=== PATIENT | female | born 1930 | race Caucasian/White ===

== ENCOUNTER 2016-06-12 10:51 | Inpatient (IN) | payer MEDICARE ==
[~2016-06-12] VITALS: Ht 152.4 cm; Wt 51.5 kg
[~2016-06-12 10:51] MED LIST: ALEVE220 MG PO; BENICAR40 MG PO; BETAPACE 80 MG80 MG PO; CALCIUM 500 +1 EAC3 PO; CATAPRES0.1 MG PO; CITRACAL + D E1 EACH PO; EXELON1 PATCH .1 TRANSDERM; FLORANEX / LACT1 TAB PO; KLOR-CON 1010 MEQ PO; MACROBID100 MG PO; MEGACE40 MG PO; MICRO-K10 MEQ PO; NAMENDA5 MG PO; REMERON15 MG PO; VITAMIN D5000 UNIT PO; XANAX0.25 MG PO; ZOFRAN4 MG PO; ZOLOFT20 MG/ML PO; ZOLOFT25 MG PO
--- NOTE | 2016-06-12 11:51 | NUR ---
1110-RECEIVED VIA WHEELCHAIR TO ROOM. FAMILY AT BEDSIDE. VSS, TO CT VIA WHEELCHAIR. 1135-RECEIVED BACK TO ROOM.
[2016-06-12 11:54] VITALS: BP 135/63; BMI 21.3
[2016-06-12 12:19] LABS: BASOPHILS 0.1 % (0.0-2.0); EOSINOPHILS 0.6 % (0-7); HEMATOCRIT 33.3 % (36.0-48.0); HEMOGLOBIN 11.1 g/dL (12-16); IMMATURE GRANULOCYTES 0.3 % (0-5); LYMPHOCYTES 11.7 % (15-50); MCH 32.2 pg (26.0-34.0); MCHC 33.3 g/dL (31.0-37.0); MCV 96.5 fL (80.0-100.0); MEAN PLATELET VOLUME 11.1 fL (7.4-10.4); MONOCYTES 7.1 % (2-11); NEUTROPHILS 80.2 % (40-80); PLATELET COUNT 207 10x3/uL (130-400); RBC 3.45 10x6/uL (4.00-5.40); RDW 14.1 % (11.5-14.5); WBC 14.1 10x3/uL (4.8-10.8)
[2016-06-12 12:36] LABS: ALBUMIN 3.7 g/dL (3.4-5.0); ANION GAP 16.4 mmol/L (8-16); BILIRUBIN - TOTAL 0.32 mg/dL (0.2-1.3); CALCIUM 10.3 mg/dL (8.5-10.1); CREATININE - SERUM 1.5 mg/dL (0.6-1.3); POTASSIUM - SERUM 3.4 mmol/L (3.5-5.1); PROTEIN - SERUM 8.5 g/dL (6.4-8.2)
[2016-06-12] MEDS ORDERED: ZOLOFT100 MG PO (12:36)
[2016-06-12] MEDS ORDERED: BENICAR20 MG PO (12:36)
[2016-06-12] MEDS ORDERED: XANAX0.25 MG PO (12:37)
[2016-06-12] MEDS ORDERED: CARDIZEM60 MG PO (12:38)
[2016-06-12] MEDS ORDERED: VITAMIN D5000 UNIT PO (12:39)
[2016-06-12] MEDS ORDERED: PRESERVISION AR1 CAP PO ×2 (12:41)
[2016-06-12] MEDS ORDERED: HYDROCODON-ACE1 EAC7 PO (12:42)
--- NOTE | 2016-06-12 13:24 | NUR ---
0323-BILATERAL SCDs PLACED ON PATIENT. WILL CONTINUE TO MONITOR.
--- NOTE | 2016-06-12 14:18 | NUR ---
IN AND OUT PERFORMMED USING STERILE TECHNIQUE. 50 CC CLOUDY URINE WITH ODOR NOTED. SENT TO LAB ORDERED.
[2016-06-12 14:25] LABS: APPEARANCE TURBID (CLEAR); BILIRUBIN NEGATIVE (NEGATIVE); COLOR YELLOW (YELLOW); GLUCOSE NEGATIVE (NEGATIVE); KETONE NEGATIVE (NEGATIVE); LEUKOCYTE ESTERASE 2+ (NEGATIVE); NITRITE POSITIVE (NEGATIVE); PROTEIN 2+ mg/dL (NEGATIVE); UROBILINOGEN NORMAL (NORMAL)
[2016-06-12 14:27] LABS: BACTERIA MANY /hpf (NONE SEEN); EPITHELIAL CELLS 0-5 /hpf (0-5); MUCUS <1+ /lpf (NONE SEEN); WHITE CELLS - URINE >50 /hpf (0-5)
[2016-06-12 14:28] LABS: TRIPLE PHOSPHATE CRYSTALS 0-5 /hpf (NONE SEEN)
[2016-06-12 16:07] VITALS: BP 137/61
--- NOTE | 2016-06-12 17:01 | NUR ---
7981-CALLED DR MARQUEZ OFFICE ([employer]) FOR DAUGHTER TO REQUEST SOME ATIVAN FOR BEDTIME. TALKED TO LEXI AND SHE SAID SHE WOULD ASK DR NEVAREZ AND CALL ME BACK.
--- NOTE | 2016-06-12 17:19 | NUR ---
RECEIVED CALL BACK FROM LEXI AT DR NEVAREZ'S OFFICE. NEW ORDERS RECEIVED.
[2016-06-12 20:00] VITALS: BP 119/60
--- NOTE | 2016-06-12 23:05 | NUR ---
PT SWALLOWED NIGHTLY MEDICATIONS IN PUDDING WITH EDITH MIST TO FOLLOW. DAUGHTER ASSISTED R/T PT BEING VERY CONFUSED AND AGITATED. SWATTING TOWARDS ME AND TOLD ME "NO YOU WILL NOT GET ON THE WAGON" PT IS READY TO GO BACK TO SLEEP. INITIATED IVPB LEVAQUIN VIA L.FA PIV. NO FURTHER NEEDS NOTED AT THIS TIME. CL IN REACH, BED IN LOWEST, SIDE RAILS X2. WILL CTM.
[2016-06-13] VITALS: BP 95/40
--- NOTE | 2016-06-13 02:07 | NUR ---
UPON ROUNDING ON PTS FOUL ODOR NOTED. CHECKED PT AND SHE WAS SOILED OF INCONTINENCE URINE EPISODE. CLEANSED PT WITH SURVEY RODMAN DEREJE AND PROVIDED FRESH DRY LINENS. NEW BRIEF PLACED WELL. PT IS STILL VERY CONFUSED BUT PLEASANT AND DID NOT FIGHT WITH OUR CARE. DAUGHTER AT BEDSIDE NO FURTHER NEEDS NOTED AT THIS TIME. WILL CPOC.
[2016-06-13 04:00] VITALS: BP 146/63
[2016-06-13 05:44] LABS: BASOPHILS 0.1 % (0.0-2.0); EOSINOPHILS 2.2 % (0-7); IMMATURE GRANULOCYTES 0.3 % (0-5); LYMPHOCYTES 22.2 % (15-50); MCH 31.9 pg (26.0-34.0); MCHC 33.8 g/dL (31.0-37.0); MEAN PLATELET VOLUME 11.4 fL (7.4-10.4); MONOCYTES 11.1 % (2-11); NEUTROPHILS 64.1 % (40-80); RDW 13.8 % (11.5-14.5)
[2016-06-13 05:46] LABS: HEMATOCRIT 23.7 % (36.0-48.0); MCV 94.4 fL (80.0-100.0); PLATELET COUNT 146 10x3/uL (130-400); RBC 2.51 10x6/uL (4.00-5.40); WBC 8.6 10x3/uL (4.8-10.8)
[2016-06-13 05:48] LABS: ANION GAP 14.3 mmol/L (8-16); CALCIUM 8.4 mg/dL (8.5-10.1); CREATININE - SERUM 1.3 mg/dL (0.6-1.3); POTASSIUM - SERUM 3.3 mmol/L (3.5-5.1)
--- NOTE | 2016-06-13 05:58 | NUR ---
POTASSIUM REPLACEMENT GIVEN PER ELECTROLYTE PROTOCOL FOR K LEVEL OF 3.3. RECHECK LAB ORDERED FOR 4H POST DOSE. PT RESTING IN BED WITH DAUGHTER AT BEDSIDE. DAUGHTER HAVING PT DRINK MUCH POSSIBLE LONG SHE WILL COOPERATE.
--- NOTE | 2016-06-13 07:27 | HP ---
PATIENT: RADHA ALVES MEDICAL RECORD: [id number] ACCOUNT: [id number] LOCATION:[facility] [place].2105 : [birth year] ADMISSION DATE: 06/12/16 HISTORY AND PHYSICAL EXAMINATION REASON FOR ADMISSION: Confusion and dehydration. HISTORY OF PRESENT ILLNESS: The patient is an 85-year-old female with history of Alzheimer dementia, nonischemic cardiomyopathy and SVT. She had fallen on May 17. She hit her head, but did not lose consciousness. She was evaluated at [facility] with a CT scan of the C-spine that reportedly showed no acute injury. She returned back to assisted living. Five days ago, she developed some diarrhea and had been drowsy and refusing medications for 3 days before her daughter brought her into our office. There have been no documented fevers or seizure activity. In the office, the patient was sitting slumped in her chair, minimally responsive, she was normotensive and mildly tachycardic. She was therefore directly admitted to the hospital for probable dehydration and altered mental status. PAST MEDICAL HISTORY: Profound Alzheimer dementia, essential hypertension, nonischemic cardiomyopathy, supraventricular tachycardia, essential hypertension, sick sinus syndrome with pacemaker, history of uterine prolapse, left bundle branch block, hyperlipidemia, history of anemia, osteoarthritis, atrial fibrillation, paroxysmal, and hiatal hernia. PAST SURGICAL HISTORY: Pacemaker placement, exploratory surgery of the abdomen and history of knee replacement. FAMILY HISTORY: Father had heart disease. Mother had heart disease and stroke. History of cancer and hypertension in the family. One brother with migraines. SOCIAL HISTORY: Nonsmoker, nondrinker lifelong. She lives in assisted living. Her daughter is very attentive to her care. ALLERGIES: SAMUEL INHIBITORS, AMIODARONE, ASPIRIN, KEFLEX, LIPITOR, PENICILLIN, SULFA, TALWIN AND ZITHROMAX. HOME MEDICATIONS: Megace 40 mg p.o. b.i.d., Cardizem 60 mg p.o. t.i.d., Benicar 20 mg p.o. daily, sotalol 80 mg b.i.d., Catapres 0.1 p.o. q.6 hours p.r.n. systolic blood pressure greater than 180, Xanax 0.25 mg p.o. b.i.d. p.r.n. anxiety, [place] 5/325 one q.6 hours p.r.n. low back pain, Namenda 10 mg p.o. b.i.d., Remeron 15 mg p.o. at bedtime, Aleve 220 mg p.o. q.4 hours p.r.n. pain, Zoloft 100 mg p.o. daily, probiotic 1 p.o. b.i.d., vitamin D 5000 unit capsule p.o. weekly, multivitamin and PreserVision 2 caps p.o. daily. REVIEW OF SYSTEMS: GENERAL: The patient has been lethargic the last 3 days, refusing food, liquids, or medications. No fever has been noted. HEENT: No recent visual change. RESPIRATORY: No shortness of breath, cough. CARDIAC: No recent chest pain or edema. GASTROINTESTINAL: No nausea or vomiting. She had some diarrhea last week that has resolved. Denied hematemesis or melena. MUSCULOSKELETAL: Has chronic lumbago, no recent sciatica. INTEGUMENTARY: No rash or itching. HISTORY AND PHYSICAL [id number] RADHA ALVES PSYCHIATRIC: She has chronic anxiety, but not depressed mood. History of severe dementia, was hospitalized at [facility], seen in [facility] last year for advanced dementia with psychotic tendencies. PHYSICAL EXAMINATION: VITAL SIGNS: In the office, her temperature was 97.7, heart rate of 100 and regular, respirations 16, blood pressure 120/62, sat 94% on room air. GENERAL: The patient is sitting in a chair, slumped down with minimal verbal ____, she did respond to touch. HEENT: Normocephalic. Pupils are reactive, but she did withdraw to open her eyes to examine her. Oropharynx: Dry mucous membranes. NECK: Supple. CHEST: Clear. HEART: Regular rate. ABDOMEN: Soft, nontender. EXTREMITIES: No CC&E. NEUROLOGICAL: The patient is disoriented to person, place and time. She cannot walk unassisted. INTEGUMENT: Few scattered ecchymoses were noted under her left eye from a recent fall. LABORATORY DATA: White count is 14,000, H&H is 11.1 and 33.3, platelet count is 207,000, 80% neutrophils, 11% lymphocytes. Chemistry: Potassium is low at 3.4, BUN and creatinine are 66 and 1.5, glucose 158 and calcium 10.3. Urinalysis is pending. IMAGING: Chest x-rays showed no acute findings. CT of the head showed no acute abnormality, mild burden of white matter changes representing chronic small-vessel ischemic changes and [id number] cerebellar volume loss. ASSESSMENT: 1. Intravascular volume depletion. 2. Diarrhea, resolved. 3. Hypokalemia. 4. Altered mental status secondary to dehydration. 5. History of hypertension, nonischemic cardiomyopathy, supraventricular tachycardia, advanced Alzheimer dementia, osteoarthritis and hyperlipidemia. PLAN: We will hydrate, replace potassium. Neuro checks frequently once more alert. If passes swallow test, we will resume medications as she tolerates them. I discussed with her daughter her current course. TRANSINT:[id number] Voice Confirmation ID: [id number] DOCUMENT ID: [id number] TY MARQUEZ MD at 0727 CC: [id number] DICTATION DATE: 06/12/16 1342 HUMID SYSTEM OPERATOR: 06/12/16 1445 ADM IN [place] [address] [place] [address]
[2016-06-13 07:41] LABS: % SATURATION 37 % (15-55); IRON 64 ug/dl (35-150); TOTAL IRON BIND CAPACITY 171 ug/dl (260-445); UNSAT IRON BIND CAPACITY 107 ug/dl (150-375)
[2016-06-13 08:56] VITALS: BP 109/48
[2016-06-13 10:04] VITALS: Ht 152.4 cm; Wt 51.5 kg
--- NOTE | 2016-06-13 11:28 | NUR ---
UNABLE TO PUT ROY IN DUE TO PT NO OPENING LEGS WITH DAUGHTER HELP IN THE ROOM.
[2016-06-13 12:00] VITALS: BP 114/51
[2016-06-13 14:26] LABS: BASOPHILS 0.1 % (0.0-2.0); EOSINOPHILS 1.7 % (0-7); HEMATOCRIT 24.5 % (36.0-48.0); HEMOGLOBIN 8.1 g/dL (12-16); IMMATURE GRANULOCYTES 0.2 % (0-5); LYMPHOCYTES 21.7 % (15-50); MCH 31.5 pg (26.0-34.0); MCHC 33.1 g/dL (31.0-37.0); MCV 95.3 fL (80.0-100.0); MONOCYTES 11.5 % (2-11); NEUTROPHILS 64.8 % (40-80); PLATELET COUNT 152 10x3/uL (130-400); RBC 2.57 10x6/uL (4.00-5.40); RDW 13.7 % (11.5-14.5)
--- NOTE | 2016-06-13 15:41 | NUR ---
PT REFUSES CARDIZEM WITHOUT DAUGHTER IN THE ROOM.
[2016-06-13 20:00] VITALS: BP 139/95
--- NOTE | 2016-06-13 20:34 | NUR ---
ADMINISTERED NIGHTLY MEDICATIONS CRUSHED IN CHOCOLATE ICE CREAM AND MIXED WITH MILK FOR A MILKSHAKE. PT IS VERY HESITANT TO DRINK AND EAT ANYTHING WHEN WE ARE NEEDING HER TO. DAUGHTER AT BEDSIDE AND CONVINCES HER TO TAKE IT BUT HAS A VERY HARD TIME WELL. INITIATED PT IVPB ANBX INFUSING OVER 90 MINS VIA L.FA PIV DRSG CDI AND SWAB CAPS. PT WILL HAVE A BLOOD TRANSFUSION ONCE BLOOD BANK GETS IT AVAILABLE. CONSENTS SIGNED AND IN CHART. PT RESTING PLEASANTLY CONFUSED DENIES ANY FURTHER NEEDS AT THIS TIME. CL IN REACH. WILL CPOC.
--- NOTE | 2016-06-13 22:45 | NUR ---
INITIATED BLOOD TRANSFUSION ORDERED. INFUSING VIA L.FA PIV. PRE VITALS 98.2 T, 85 HR, 18 RR NONLABORED ON RA, 99% O2 SAT AND 131/62 BP VIA R.ARM. WILL REMAIN IN ROOM FOR FIRST 15 MINS TO WATCH FOR ANY REACTION THEN CONTINUE TO MONITER VITALS PER PROTOCOL. DAUGHTER AT BEDSIDE AND DENIES ANY CURRENT NEEDS. WILL CTM.
--- NOTE | 2016-06-13 23:19 | NUR ---
L.FA PIV INFILTRATED. STOPPED BLOOD AND D/C WITH CATHETER TIP FULLY INTACT. NEW [address] TO ANTERIOR L.FA X1 ATTEMPT AND BLOOD BACK IN PROCESS OF TRANSFUSION. VSS STILL. DAUGHTER AT BEDSIDE. PT RESTING QUIETLY AND WAS VERY COOPERATIVE THROUGHOUT NEW IV PLACEMENT. WILL CPOC.
--- NOTE | 2016-06-14 00:50 | NUR ---
BLOOD TRANSFUSING WITHOUT ANY REACTIONS OR PROBLEMS NOTED. VSS. PT RESTING QUIETLY WITH EYES CLOSED, RR NONLABORED ON RA. DAUGHTER SLEEPING AT BEDSIDE. WILL CTM.
--- NOTE | 2016-06-14 02:30 | NUR ---
BLOOD TRANSFUSION COMPLETED. VSS THROUGHOUT ENTIRE TRANSFUSION. NO REACTION NOTED. FLUSHED IV AND RESTARTED ORDERED FLUIDS OF D51/2 NS @125ML/HR. PT DENIES ANY CURRENT PAIN OR NEEDS. DAUGHTER STILL AT BEDSIDE RESTING. CL IN REACH. WILL CPOC.
[2016-06-14 04:00] VITALS: BP 123/53
[2016-06-14 06:28] LABS: BASOPHILS 0.1 % (0.0-2.0); EOSINOPHILS 2.7 % (0-7); IMMATURE GRANULOCYTES 0.4 % (0-5); LYMPHOCYTES 23.5 % (15-50); MCH 30.8 pg (26.0-34.0); MCHC 33.7 g/dL (31.0-37.0); MEAN PLATELET VOLUME 11.1 fL (7.4-10.4); MONOCYTES 13.3 % (2-11); PLATELET COUNT 144 10x3/uL (130-400); RDW 15.5 % (11.5-14.5); WBC 7.9 10x3/uL (4.8-10.8)
[2016-06-14 06:29] LABS: HEMATOCRIT 30.9 % (36.0-48.0); HEMOGLOBIN 10.4 g/dL (12-16); MCV 91.4 fL (80.0-100.0); RBC 3.38 10x6/uL (4.00-5.40)
[2016-06-14 06:58] LABS: ANION GAP 10.1 mmol/L (8-16); CALCIUM 8.9 mg/dL (8.5-10.1); CARBON DIOXIDE 24.6 mmol/L (21.0-32.0); CREATININE - SERUM 1.1 mg/dL (0.6-1.3); POTASSIUM - SERUM 3.7 mmol/L (3.5-5.1)
--- NOTE | 2016-06-14 07:00 | NUR ---
RECEIVED REPORT. ASSUMED CARE OF PATIENT. CALL LIGHT WITHIN REACH. CONFUSED. PATIENTS DAUGHTER AT BEDSIDE. NO DISTRESS. RESP EVEN AND UNLABORED. DENIES NEEDS AT THIS TIME.
[2016-06-14 09:04] VITALS: BP 145/64
[2016-06-14 09:12] LABS: FOLATE (FOLIC ACID) - SERUM 10.9 ng/mL (>3.0)
--- NOTE | 2016-06-14 09:59 | NUR ---
PATIENT COOPERATIVE WITH MEDICATIONS. TOOK ALL MEDICATIONS IN SOFT, SLIGHTLY MELTED VANILLA ICE CREAM. IV FLUIDS INFUSING ORDERED. NO DISTRESS. CALL LIGHT WITHIN REACH.
[2016-06-14 12:12] VITALS: BP 121/76
--- NOTE | 2016-06-14 15:11 | NUR ---
CALLED THE [facility] AND SPOKE TO PATRICIA IN REGARDS TO HOW MUCH PROMPTING PATIENT NEEDS IN REGARDS TO EATING AND TAKING HER MEDICATIONS. ALEXSANDRA STATES THAT NORMALLY PATIENT WILL FEED HERSELF WITH MINIMAL COAXING AND THAT SHE TAKES HER MEDICATIONS CRUSHED IN APPLESAUCE. THIS SCHOOL TREASURER HAS BEEN ABLE TO GET PATIENT TO TAKE HER MEDICATIONS CRUSHED IN APPLESAUCE BUT HAS NOT BEEN ABLE TO GET HER TO EAT OR DRINK AND THAT IS WHY THIS SCHOOL TREASURER WAS REACHING OUT TO THE FACILITY THAT IS FAMILIAR WITH HER. THANKED ALEXSANDRA FOR PROVIDING THIS SCHOOL TREASURER WITH INFORMATION HE WAS ABLE TO PROVIDE.
[2016-06-14 16:25] VITALS: BP 166/44
--- NOTE | 2016-06-14 18:30 | NUR ---
INCONTINENT CARE PROVIDED AT THIS TIME. NO DISTRESS.
--- NOTE | 2016-06-14 19:30 | NUR ---
ASSESSMENT COMPLETE, ON ROOM AIR, D51/2NS INFUSING W/O DIFF VIA PUMP TO RT FA IV WITH NO R/S NOTED AT SITE. ORIENTED TO SELF ONLY, UNABLE TO ORIENT. INCONT OF B & B WITH BRANDEE CARE AND LINEN CHANGE DONE PRN. HOB UP SR UP X2, C/L IN REACH, CONTINUE TO MONITOR.
[2016-06-15 00:37] VITALS: BP 141/66
[2016-06-15 05:09] LABS: BASOPHILS 0.1 % (0.0-2.0); EOSINOPHILS 3.6 % (0-7); HEMATOCRIT 32.8 % (36.0-48.0); IMMATURE GRANULOCYTES 0.7 % (0-5); LYMPHOCYTES 25.5 % (15-50); MCH 30.6 pg (26.0-34.0); MCHC 33.5 g/dL (31.0-37.0); MCV 91.4 fL (80.0-100.0); MEAN PLATELET VOLUME 11.2 fL (7.4-10.4); MONOCYTES 11.4 % (2-11); NEUTROPHILS 58.7 % (40-80); PLATELET COUNT 152 10x3/uL (130-400); RBC 3.59 10x6/uL (4.00-5.40); RDW 15.4 % (11.5-14.5); WBC 6.9 10x3/uL (4.8-10.8)
[2016-06-15 05:48] LABS: ANION GAP 12.4 mmol/L (8-16); CALCIUM 8.5 mg/dL (8.5-10.1); CARBON DIOXIDE 24.2 mmol/L (21.0-32.0); CREATININE - SERUM 0.9 mg/dL (0.6-1.3); POTASSIUM - SERUM 3.6 mmol/L (3.5-5.1)
--- NOTE | 2016-06-15 07:00 | NUR ---
RECEIVED REPORT. ASSUMED CARE OF PATIENT. CALL LIGHT WITHIN REACH. ORIENTED TO SELF. IV FLUIDS INFUSING ORDERED. NO DISTRESS. RESP EVEN AND UNLABORED.
[2016-06-15 09:00] VITALS: BP 147/56
--- NOTE | 2016-06-15 09:20 | NUR ---
PATIENT LEFT UNIT VIA WHEELCHAIR FOR RIB XRAY DOWNSTAIRS IN RADIOLOGY. NO DISTRESS UPON LEAVING UNIT. PATEINTS DAUGHTER AT BEDSIDE.
--- NOTE | 2016-06-15 09:45 | NUR ---
PATIENT RETURNED TO ROOM AND ASSISTED TO BED. CALL LIGHT WITHIN REACH. INCONTINENT CARE PROVIDED. NO DISTRESS.
--- NOTE | 2016-06-15 15:15 | NUR ---
VANILL ICE CREAM FED TO PATIENT AT THIS TIME. INCONTINENT CARE / LINENS CHANGED AT THIS TIME ALSO. CALL LIGHT WITHIN REACH. PATIENT TURNED TO LEFT LATERAL SIDE. NO DISTRESS.
[2016-06-15 16:00] VITALS: BP 135/57
--- NOTE | 2016-06-15 18:09 | NUR ---
SITTING IN BED WITH HOB. NO DISTRESS. RESP EVEN AND UNLABORED.
[2016-06-16] VITALS: BP 166/75
--- NOTE | 2016-06-16 02:57 | NUR ---
LYING IN BED WITH EYES CLOSED, RESP;UNLAB WITH NO S/S OF ACUTE DISTRESS NOTED. UNABLE TO ORIENT TO TIME AND PLACE. CHECKED FREQ FOR NEEDS. C/L IN REACH. BOX ALARM ON AND WORKING FOR SAFETY. CONTINUE TO MONITOR.
[2016-06-16 08:00] VITALS: BP 172/73
--- NOTE | 2016-06-16 08:03 | NUR ---
0715-AM ROUNDING DONE WTIH PAITNET APPEARING TO BE ASLEEP, RESP ARE EVEN AND NON LABORED. BOX ALARM IS IN USE. ON HEART MONITOR SHOWING SR, HR 72. LEFT FOREARM SEEN WITH SALINE LOCK. ON EP, LAB VALUES ARE GOOD. BILATERAL SCD'S ARE IN USE. DAUGHTER NOT AT BEDSIDE AT PRESENT TIME. WILL CONTINUE TO MONITOR.
[2016-06-16 12:00] VITALS: BP 152/74
--- NOTE | 2016-06-16 15:48 | NUR ---
1517-CARDIZEM CRUSED AND MIXED WITH CHOCOLATE PUDDING. DAUGHTER AT BEDSIDE. BOX ALARM IN USE.
[2016-06-16 16:00] VITALS: BP 141/63
--- NOTE | 2016-06-16 20:09 | NUR ---
PT AWAKE, ALERT, CONFUSED, BEING PLEASANT AT THIS TIME. DENIES ANY ACUTE NEEDS. CONTINUE TO MONITOR CLOSELY. BED LOW, CALL LIGHT IN REACH, SIDE RAILS X 2, HOB 20 DEGREES, BOX ALARM ON AND ATTACHED TO PT.
[2016-06-16 21:40] VITALS: BP 123/100
[2016-06-17 02:00] VITALS: BP 177/99
--- NOTE | 2016-06-17 03:01 | NUR ---
PT AWAKE, ALERT, CONFUSED, TALKING TO HERSELF AT THIS TIME. BOX ALARM ON AND ATTACHED TO PT. PT REFUSED HER 21:00 MEDS EVEN WHEN CRUSHED AND GIVEN WITH CHOCOLATE PUDDING. PT DEMONSTRATES GREAT CONFUSION AND INABILITY TO FOLLOW SIMPLE DIRECTIONS. CONTINUE TO MONITOR CLOSELY. BED LOW, CALL LIGHT IN REACH, SIDE RAILS X 3, HOB 25 DEGREES.
--- NOTE | 2016-06-17 07:15 | NUR ---
RESTING QUIETLY EYES CLOSED RESP UNLABORED NAD NOTED
[2016-06-17 08:19] VITALS: BP 170/65
[2016-06-17 12:05] VITALS: BP 132/62
--- NOTE | 2016-06-17 14:57 | NUR ---
Nutrition follow-up: Visited with pts daughter; requested sausage gravy; RDN provided. Diet: Regular as tolerated PO intake ~50-75% of meals Labs reviewed Wt: 113# - up 3# from admit No BM charted RDN following.
[2016-06-17 16:04] VITALS: BP 78/50
--- NOTE | 2016-06-17 18:16 | NUR ---
BEDDING AND GOWN CHANGED
--- NOTE | 2016-06-17 20:10 | NUR ---
PT RESTING IN BED. IV TO LEFT FA IS PATENT. PT IS CONFUSED, ONLY ORIENTED TO SELF. BED ALARM IN PLACE. CL IN REACH.
--- NOTE | 2016-06-17 22:50 | NUR ---
PT HS MEDS ADMINISTERED. PT DENIES NEEDS. WCTM. BED LOW. CL IN REACH.
[2016-06-18] VITALS: BP 141/63
--- NOTE | 2016-06-18 00:15 | NUR ---
PT RESTING, EYES CLOSED. BED LOW. CL IN REACH.
[2016-06-18 04:00] VITALS: BP 152/49
--- NOTE | 2016-06-18 04:45 | NUR ---
PT HAD INCONT EPISODE. PT HAD COMPLETE BED CHANGE AND GOWN CHANGE. BUTT PASTE APPLIED TO REDDENED AREA ON BUTTOCK.
--- NOTE | 2016-06-18 07:22 | NUR ---
PT RESTING COMFORTABLY. NO SS OF DISTRESS AT THIS TIME. WILL CONTINUE TO MONITOR.
--- NOTE | 2016-06-18 08:09 | NUR ---
PATIENT AWAKE. VERY CONFUSED/DISORIENTATED. DAUGHTER IN ROOM WITH PATIENT. DAUGHTER FEEDING PATIENT. LEFT FOREARM SL. NO OXYGEN. CALL LIGHT WITHIN PATIENTS REACH
[2016-06-18 08:21] VITALS: BP 162/67
--- NOTE | 2016-06-18 10:30 | NUR ---
Rehab Note- Rehab Prescreen order received. Spoke with SHEREE Gilliam. The patient is noted on PT eval to be demented and unable to participate with therapy due to cognition and resides on a dementia unit. Will continue to follow at this time to see if the patient is able to participate with therapy. Thank you for this referral! Malinda Mckinnon RN Clinical Liaison, [facility] Rehab/Jose
--- NOTE | 2016-06-18 12:00 | NUR ---
PATIENT GOTTEN UP IN CHAIR AT BEDSIDE BY PHYSICAL THERAPIST.
--- NOTE | 2016-06-18 12:26 | NUR ---
PATIENT TAKING MEDICATIONS CRUSHED IN APPLESAUCE
[2016-06-18 12:36] VITALS: BP 130/53
--- NOTE | 2016-06-18 15:12 | NUR ---
PATIENT RESTING. DAUGHTER REMAINS IN ROOM. PATIENT TAKES MEDICATIONS CRUSHED IN PUDDING.
[2016-06-18 15:35] VITALS: BP 156/72
--- NOTE | 2016-06-18 16:49 | NUR ---
Patient Name: RADHA ALVES Admission Status: Elective Accout number: [id number] Admission Date: 06-12-2016 : 1930 Admission Diagnosis:DISORIENTATION, UNSPECIFIED Attending: ASHLEY Current LOS: 6 Anticipated DC Date: 06-19-2016 Planned Disposition: Inpatient Rehab Primary Insurance: [facility] PLANNED EXTERNAL PROVIDER: [facility] INPATIENT REHAB Discharge Planning Comments: * Is the patient Alert and Oriented? No 0 * How many steps to enter\exit or inside your home? NONE 0 * PCP DR. MARQUEZ 0 * Pharmacy [facility] 0 * Preadmission Environment Assisted Living 0 * Facility Name [facility] 0 * ADLs Partial Dependent 0 * Partial ADLs (Assistance needed) Bathing Medication Management 0 * Equipment None 0 * Other Equipment [facility] -MEDICAL EQUIPMENT PROVIDER PREFERENCE 0 * List name and contact numbers for known caregivers / representatives who currently or will assist patient after discharge: CLEM GORE, DAUGHTER, 0 * Community resources currently utilized None 0 * Please name any agencies selected above. NONE 0 * Additional services required to return to the preadmission environment? Yes * Can the patient safely return to the preadmission environment? Yes 0 * Has this patient been hospitalized within the prior 30 days at any hospital? No 0 CM MET WITH PT AND DAUGHTER IN ROOM TO DISCUSS DISCHARGE PLANNING AND NEEDS. PT ORIENTED TO SELF ONLY AND IS VERY HARD OF HEARING. PT'S DAUGHTER REPORTS PT LIVING AT THE [facility] IN [facility]ARE UNIT, HAVING ASSISTANCE OF STAFF WITH MEDICATIONS AND BATHING. PT HAS NO MEDICAL EQUIPMENT, PROVIDER PREFERENCE IS [facility]. CM DISCUSSED AVAILABILITY OF HOME HEALTH, REHAB SERVICES AND MEDICAL EQUIPMENT. PT'S DAUGHTER WOULD LIKE PT TO RETURN TO [facility] WHEN ABLE AND WOULD LIKE PT CONSIDERED FOR INPATIENT REHAB AT [place]. PT WAS WALKING INDEPENDENTLY AT [facility] WITHOUT ASSISTIVE DEVICE PRIOR TO GETTING SICK. PT'S DAUGHTER WILL TRANSPORT PT FOR DISCHARGE HOME. IMPORTANT MESSAGE FROM MEDICARE PROVIDED AND EXPLAINED. CM DISCUSSED POSSIBLITY OF LONG-TERM FACILITY FOR REHAB. PT'S DAUGHTER REPORTS THE [facility] HAS A THERAPIST ON SITE AT THE FACILITY AND SHE DOES NOT KNOW WHERE SHE WOULD LIKE TO SEND PT FOR LONG-TERM FACILITY REHAB IF NEEDED. CM PROVIDED LISTING FOR LOCAL NURSING FACILITIES IF REQUIRED. CM DISCUSSED THAT IF PT NEEDS LONG-TERM FACILITY PLACEMENT, A DARIELA WILL NEED TO BE COMPLETED, PT'S DAUGHTER REPORTS UNDERSTANDING AND WILL ASSIST IF NEEDED. CM CALLED THE [facility], , SPOKE TO JOHNATHAN WHO REPORTED THAT FOR RETURN TO MEMORY [facility]ARE, A FACE TO FACE EVALUATION WILL NEED TO BE COMPLETED; TO REQUEST EVALUATION, PLEASE CALL ZENY OR RICHARD AT [phone] TOMORROW; IF ACCEPTED, FAX DISCHARGE INFORMATION TO THE [facility] AT [phone]. CM WAITING INPATIENT REHAB PRESCREEN AND IF APPROPRIATE FOR INPATIENT, INSURANCE AUTHORIZATION. CM TO CALL [facility] TO REQUEST FACE TO FACE EVALUATION OF PT FOR RETURN TO [facility]ARE. Supervising Law Enforcement Analyst: Buck Vann
--- NOTE | 2016-06-18 17:35 | NUR ---
PATIENT HELPED WITH SUPPER TRAY. FOOD ON TRAY CUT UP FOR PATIENT
[2016-06-18 20:00] VITALS: BP 157/68
--- NOTE | 2016-06-18 20:00 | NUR ---
LYING IN BED RESTING WITH EYES CLOSED. AROUSES EASILY. VERY CONFUSED AND DISORIENTED. NO SIGNS OF DISTRESS NOTED. SEE ASSESSMENT FLOW SHEET FOR FUTHER DETAILS. WILL CONTINUE TO MONITOR.
[2016-06-19] VITALS: BP 171/45
[2016-06-19 05:19] LABS: BASOPHILS 0.2 % (0.0-2.0); EOSINOPHILS 5.8 % (0-7); HEMATOCRIT 32.6 % (36.0-48.0); HEMOGLOBIN 11.1 g/dL (12-16); IMMATURE GRANULOCYTES 0.4 % (0-5); LYMPHOCYTES 13.9 % (15-50); MCH 31.4 pg (26.0-34.0); MCV 92.4 fL (80.0-100.0); MEAN PLATELET VOLUME 10.8 fL (7.4-10.4); MONOCYTES 10.2 % (2-11); NEUTROPHILS 69.5 % (40-80); PLATELET COUNT 157 10x3/uL (130-400); RBC 3.53 10x6/uL (4.00-5.40); RDW 14.9 % (11.5-14.5); WBC 10.7 10x3/uL (4.8-10.8)
[2016-06-19 05:28] LABS: ANION GAP 10.3 mmol/L (8-16); CALCIUM 8.9 mg/dL (8.5-10.1); CARBON DIOXIDE 30.5 mmol/L (21.0-32.0); CREATININE - SERUM 0.9 mg/dL (0.6-1.3); POTASSIUM - SERUM 3.8 mmol/L (3.5-5.1)
[2016-06-19 06:28] VITALS: BP 130/74
--- NOTE | 2016-06-19 07:00 | NUR ---
PT WAS RECEIVED AT THE BEGINNING OF THIS SHIFT IN BED AWAKE AND ORIENTED TO SELF. SHE HAS DEMENTIA AND IS CONFUSED AND UNABLE TO COMMUNICATE OR UNDERSTAND COMMUNICATION. VITAL SIGNS WNL. PT WILL BE ASSISTED WITH ADL'S AND BE GIVEN SUPPORT. STABLE CONDITION OBSERVED. LEFT FOREARM IV WITH NS GOING AT TKO. PT IS INCONTINENT OF BOWEL AND BLADDER. MEDS ARE TO BE CRUSHED AND PUT IN CHOCOLATE PUDDING. DAUGHTER IS AT BEDSIDE.
[2016-06-19 08:00] VITALS: BP 167/62
[2016-06-19] MEDS ORDERED: MACROBID100 MG PO (08:22)
[2016-06-19] MEDS ORDERED: MIRALAX17 GM PO (08:29)
[2016-06-19] MEDS ORDERED: MILK OF MAGNESI30 ML PO (08:29)
--- NOTE | 2016-06-19 08:46 | NUR ---
Patient Name: RADHA ALVES Encounter No: [id number] : 1930 Primary Insurance: [employer] Anticipated DC Date: 06-19-2016 Planned Disposition: Inpatient Rehab External Planned Provider: [facility] INPATIENT REHAB DCP follow-up note: CM CALLED THE [facility], , SPOKE TO RICHARD WHO REPORTED THAT FOR RETURN TO [facility]ORY [facility]ARE, A FACE TO FACE EVALUATION WILL NEED TO BE COMPLETED; RICHARD WILL BE HERE TO EVALUATE PT BEFORE 11AM TODAY; IF ACCEPTED, FAX DISCHARGE INFORMATION TO THE [facility] AT [phone]. CM WAITING INPATIENT REHAB PRESCREEN AND IF APPROPRIATE FOR INPATIENT, INSURANCE AUTHORIZATION. CM ALSO WAITING FACE TO FACE EVALUATION TODAY OF PT FOR RETURN TO [facility]. Proposal Development Manager: Buck Vann
[2016-06-19 11:46] VITALS: BP 165/81
--- NOTE | 2016-06-19 14:45 | NUR ---
Patient Name: RADHA ALVES Encounter No: [id number] : 1930 Primary Insurance: [employer] Anticipated DC Date: 06-19-2016 Planned Disposition: Assisted Living WITH HOME HEALTH External Planned Provider: [facility] WITH [facility] DCP follow-up note: PT WAS DECLINED BY INPATIENT REHAB. CM SPOKE TO PT'S DAUGHTER WHO WILL TAKE PT BACK TO [facility] WITH HOME HEALTH THERAPY. CM CALLED THE [facility], , SPOKE TO WADE WHO REPORTED EVAL WAS DONE AND THEY WILL ACCEPT PT TODAY BACK TO [facility]ARE,CM SPOKE TO PT AND DAUGHTER IN ROOM, BOTH IN AGREEMENT WITH DISCHARGE TO THE [facility] TODAY, DAUGHTER TO DRIVE. HOME HEALTH DISCUSSED, PT'S DAUGHTER REQUESTED [facility], CHOICE SIGNED. CM FAXED DISCHARGE INFORMATION TO THE [facility] AT [phone]. CM CALLED [facility], , SPOKE TO LUPE AND PROVIDED REFERRAL INFORMATION FOR FOLLOW UP TOMORROW. CM FAXED REFERRAL TO [facility] AT [phone]. NURSE REPORT TO BE CALLED TO THE [facility] AT [phone]. HOT REPAIRMAN NOTIFIED. Buck Vann, CASE MANAGEMENT
--- NOTE | 2016-06-19 15:57 | NUR ---
PT IS BEING DISCHARGED AT THIS TIME. REPORT WAS PHONED INTO THE RECEIVING NURSE AT THE [facility]. PT'S DAUGHTER WAS GIVEN THE DISCHARGE PAPERWORK AND ALL OF HER PERSONAL BELONGINGS WERE SENT WITH THE DAUGHTER TO BE TAKEN TO THE [facility]. PT. IS BEING WHEELED OUT TO AWAITING CAR IN A WHEELCHAIR. STABLE CONDITION OBSERVED UPON LEAVING THE UNIT.
--- NOTE | 2016-06-22 20:28 | DS ---
PATIENT:RADHA ALVES :[birth year] MEDICAL RECORD: [id number] DISCHARGE SUMMARY ADMISSION DATE: 06/12/16 DISCHARGE DATE: 06/19/16 DISCHARGE DIAGNOSES: 1. Dehydration. 2. Dementia with altered mental status. 3. Escherichia coli, urinary tract infection. 4. Diarrhea. 5. Hypokalemia. 6. Anemia of chronic disease. HOSPITAL COURSE: An 85-year-old female with Alzheimer's dementia being gradually worse over the last several years. She had had diarrhea and a fall prior to coming in. She came admitted from the assisted living facility, Alzheimer's unit with dehydration, decreased sensorium. [place] that she might be ____ placed on IV antibiotics and urine culture returned E. coli. She was on Levaquin and then switched to oral Macrodantin for which her multi organism E. coli was sensitive to. The patient gradually improved near her baseline. She is now walking with assistance and a walker approximately 20 feet twice daily. Her daughter wants her to remain at the assisted living with home health PT consult. Her discharge potassium is now 3.8, corrected. BUN and creatinine are 13 and 0.9. Glucose is 102. Serum iron was borderline low at 64, TIBC low 171, iron saturation is 37, ferritin is high at 262. Liver functions normal. Ammonia level is low at 6. Troponin was less than 0.017, B12 low normal at 297. The patient will be discharged today in improving condition. Macrodantin 100 mg p.o. b.i.d. for 4 days and discontinue sotalol 80 mg p.o. b.i.d., Remeron 15 mg p.o. at bedtime, Catapres 0.1 p.o. q.4 hours p.r.n. systolic over 180 over diastolic over 110. Aleve 220 mg p.o. b.i.d. p.r.n. pain, Megace 40 mg p.o. b.i.d., Namenda 10 mg p.o. b.i.d., Floranex 1 tab p.o. b.i.d., Benicar 20 mg a day, Zoloft 100 mg a day, Xanax 0.25 mg b.i.d. p.r.n. anxiety, Cardizem 60 mg p.o. t.i.d., vitamin D 5000 unit capsule p.o. weekly, PreserVision AREDS soft gel 2 caps p.o. daily, hydrocodone 5/325 one q.6 hours p.r.n. pain. ACTIVITY: Progressive physical therapy with the help with walking with home health PT. Return to clinic to see me in 10 days for CBC and BMP. TRANSINT:[id number] Voice Confirmation ID: [id number] DOCUMENT ID: [id number] TY MARQUEZ MD at 2028 CC: [id number] DICTATION DATE: 06/19/16827 PROGRAM OFFICER: 06/20/16 0017 DIS IN 06/19/16 [facility] [address] [place] [address]
== END 2016-06-19 15:59 | disposition home health service (06) | DRG 640 ==
LOC: D.M2 10:51
PROVIDERS: ADMIT Family Medicine
PROC: 0T9B70Z Drainage of Bladder with Drainage Device, Via Natural or Artificial Opening (ICD-10-PCS; principal; 2016-06-13)
DX: E86.0 Dehydration (principal); G93.49 Other encephalopathy; I42.9 Cardiomyopathy, unspecified; K92.1 Melena; F02.81 Dementia in other diseases classified elsewhere, unspecified severity, with behavioral disturbance; N39.0 Urinary tract infection, site not specified; E87.6 Hypokalemia; I10 Essential (primary) hypertension; E78.5 Hyperlipidemia, unspecified; I48.0 Paroxysmal atrial fibrillation; M25.552 Pain in left hip; G30.9 Alzheimer's disease, unspecified; F41.9 Anxiety disorder, unspecified; E55.9 Vitamin D deficiency, unspecified; K21.9 Gastro-esophageal reflux disease without esophagitis; B96.20 Unspecified Escherichia coli [E. coli] as the cause of diseases classified elsewhere; F32.9 Major depressive disorder, single episode, unspecified; D63.8 Anemia in other chronic diseases classified elsewhere; Z95.0 Presence of cardiac pacemaker

== ENCOUNTER 2016-07-22 09:43 | Inpatient (IN) | payer MEDICARE ==
[~2016-07-22] VITALS: Ht 154.9 cm; Wt 49.9 kg
[2016-07-22] VITALS: BP 110/52
[~2016-07-22 09:43] MED LIST changes: +BENICAR20 MG PO; +CARDIZEM60 MG PO; +HYDROCODON-ACE1 EAC7 PO; +MILK OF MAGNESI30 ML PO; +MIRALAX17 GM PO; +PRESERVISION AR1 CAP PO; +ZOLOFT100 MG PO
[2016-07-22 10:21] LABS: BASOPHILS 0.1 % (0-2); EOSINOPHILS 1.9 % (0-7); HEMATOCRIT 34.4 % (36.0-48.0); HEMOGLOBIN 10.8 g/dL (12-16); IMMATURE GRANULOCYTES 0.6 % (0-5); MCHC 31.4 g/dL (31.0-37.0); MCV 98.9 fL (80.0-100.0); MEAN PLATELET VOLUME 10.8 fL (7.4-10.4); MONOCYTES 7.9 % (2-11); NEUTROPHILS 78.5 % (40-80); RBC 3.48 10x6/uL (4.00-5.40); WBC 15.5 10x3/uL (4.8-10.8)
[2016-07-22 10:28] LABS: PLATELET COUNT 263 10x3/uL (130-400)
[2016-07-22 10:37] LABS: INR 1.07 (0.85-1.17); PROTIME 13.8 SECONDS (11.6-15.0)
[2016-07-22 10:44] LABS: ALBUMIN 2.5 g/dL (3.4-5.0); ANION GAP 14.8 mmol/L (8-16); BILIRUBIN - TOTAL 0.4 mg/dL (0.2-1.3); CALCIUM 9.8 mg/dL (8.5-10.1); CARBON DIOXIDE 26.8 mmol/L (21.0-32.0); CREATININE - SERUM 1.6 mg/dL (0.6-1.3); MAGNESIUM - SERUM 2.3 mg/dL (1.8-2.4); POTASSIUM - SERUM 3.6 mmol/L (3.5-5.1); PROTEIN - SERUM 7.5 g/dL (6.4-8.2)
--- NOTE | 2016-07-22 11:30 | NUR ---
Rcd pt per brandyn to room 1223. Three assist transfer with Art leg and hip support. Pt tolerated well with out complaint. SL note to left AC with coban. Removed coban and coverd with light soft gauze. Pt states feels better. Pt denies needs. Daughter Nahed requesting food for pt. Explained I would check orders. Verblized understanding.
--- NOTE | 2016-07-22 12:25 | NUR ---
[facility] PROVIDED. NOTED URINE AND SCANT BM. ROLLED TO LEFT WITH RIGHT HIP SUPPORT. PT TOLERATED WELL. PADS WERE CHANGED. VS WERE OBTAINED. PT FAMILY DENIES NEEDS. BED IN LOWEST POSITION, CALL LIGHT IN REACH, BED LOCKED. PT WILL BE A FALL RISK.
--- NOTE | 2016-07-22 12:40 | NUR ---
Nahed _ Pts daughter just went home and will be back.
--- NOTE | 2016-07-22 12:45 | NUR ---
SPRITE PROVIDE AND PT STATES IT TASTE GOOD.
--- NOTE | 2016-07-22 12:50 | NUR ---
Dr. Goncalves her to see patient. May place on Regular diet and NPO at midnight.
--- NOTE | 2016-07-22 14:03 | NUR ---
TRIED TO START HER IV FLUIDS TO SALINE LOCK LEFT AC. ALARM GOES OFF THAT IT IS OCCLUDED. TRIED USING ARMBOARD TO KEEP ARM STRIAGHT AND IT STILL ALARMS OCCLUDED. CAROLINA CARDENAS CONTACTED TO REPACE IV ACCESS.
--- NOTE | 2016-07-22 14:10 | NUR ---
IV ACCESS-22 GAUGE INSERTED IN RIGHT HAND FOR ACCESS. CAROLINA CARDENAS RN
--- NOTE | 2016-07-22 14:10 | NUR ---
NEW IV ACCESS STARTED R HAND BT CAROLINA CARDENAS RN, IV ACCESS NURSE. IV PATENT AND IV INITIATED AT 125 CC HR.
--- NOTE | 2016-07-22 14:23 | NUR ---
CONSULT CALLED TO DR DEUTSCH OFFICE. SHE STATES THAT SHE WILL GIVE HIM THE CONSULT.
--- NOTE | 2016-07-22 14:24 | NUR ---
TRIED TO FEED PT. HER DENTURES DO NOT FIT PROPERLY AND IT IS DIFFICULT TO FEED HER. SHE WOULD GET HER HAND AND SPIT IT OUT IN HER HAND.
--- NOTE | 2016-07-22 15:30 | NUR ---
PT WAS GIVEN SOME OF HER MEDS. HER DAUGHTER DID NOT WANT HER TO HAVE TO TAKE HER OCUVITE DUE TO HER NOT WANTING TO SWALLOW HER MEDS. SHE DID NOT WANT HER TTO HAVE MIRALAX DUE TO PT HAVING SOME DIARRHEA. TRIED TO GIVE HER OTHER MEDS WITH PUDDING AND SHE TOOK HALF OF THEM AND SPIT 2 HALVES OUT. WE CRUSHED THE OTHER HALVES AND GAVE THEM TO HER IN BUTTERMILK. HER LINENS AND GOWN WERE BOTH CHANGED.
--- NOTE | 2016-07-22 16:20 | NUR ---
APPLIED CLEANING BARRIER AND BUTT PASTE TO HER BOTTOM. LEFT BUTTOCK WITH REDNESS BUT NO BREAKDOWN NOTICED.
--- NOTE | 2016-07-22 16:50 | NUR ---
PTS BED PADS ARE CHANGED WELL HER GOWN DUE TO HER VOIDING. SHE WAS CLEANED WITH WIPES AND STEWART'S BUTT PASTE WAS APPLIED.
--- NOTE | 2016-07-22 17:17 | NUR ---
PT WAS TRANSFERRED BY BED TO MED SURG FLOOR- ROOM 2238. TAKEN BY BED. REPORT GIVEN TO MARCELO MAC.
--- NOTE | 2016-07-22 17:30 | NUR ---
RECEIVED TO ROOM 2238 FROM [facility] AT THIS TIME VIA BED. DAUGHTER AT BEDSIDE. PT CLEAN AND DRY AT THIS TIME. DAUGHTER AT BEDSIDE. ORIENTED TO CALL LIGHT. WILL CONTINUE WITH PLAN OF CARE.
[2016-07-22 17:53] VITALS: BMI 20.8
--- NOTE | 2016-07-22 19:00 | NUR ---
PATIENT SLEEPING SUPINE IN BED. HOB 30 DEGREES. RR EVEN AND UNLABORED. 0 S/S OF DISTRESS. IV TO RIGHT FA PATENT WITH NO REDNESS OR SWELLING. BOX ALARM ON. DAUGHTER AT BEDSIDE. SRX3. BED LOW. CALL LIGHT WITHIN REACH.
[2016-07-22 20:00] VITALS: BP 107/47
--- NOTE | 2016-07-22 21:00 | NUR ---
LINENS AND GOWN CHANGED DUE TO INCONTINENT EPISODE OF BLADDER. PATIENT APPEARED TO BE IN PAIN WHEN SHE WAS MOVED BUT THE DAUGHTER STATED SHE DID NOT WANT HER TO HAVE MORPHINE.
--- NOTE | 2016-07-22 23:00 | NUR ---
NIGHTTIME MEDS GIVEN CRUSHED IN PUDDING.
[2016-07-23] VITALS (12 sets, daily range): BP systolic 68–130; BP diastolic 20–508; Ht 154.9 cm; Wt 49.9 kg
--- NOTE | 2016-07-23 04:00 | NUR ---
PATIENT SLEEPING WITH NO DISTRESS NOTED. DAUGHTER AT BEDSIDE.
[2016-07-23 05:53] LABS: ANION GAP 15.3 mmol/L (8-16); CALCIUM 8.6 mg/dL (8.5-10.1); CARBON DIOXIDE 24.3 mmol/L (21.0-32.0); POTASSIUM - SERUM 3.6 mmol/L (3.5-5.1)
[2016-07-23 06:04] LABS: CREATININE - SERUM 1.1 mg/dL (0.6-1.3)
[2016-07-23 06:33] LABS: BASOPHILS 0.1 % (0-2); HEMATOCRIT 26.3 % (36.0-48.0); HEMOGLOBIN 8.3 g/dL (12-16); IMMATURE GRANULOCYTES 0.4 % (0-5); LYMPHOCYTES 19.1 % (15-50); MCH 30.3 pg (26.0-34.0); MCHC 31.6 g/dL (31.0-37.0); MEAN PLATELET VOLUME 11.4 fL (7.4-10.4); MONOCYTES 8.6 % (2-11); NEUTROPHILS 68.8 % (40-80); PLATELET COUNT 172 10x3/uL (130-400); RBC 2.74 10x6/uL (4.00-5.40); RDW 14.9 % (11.5-14.5)
--- NOTE | 2016-07-23 07:31 | HP ---
PATIENT: RADHA ALVES MEDICAL RECORD: [id number] ACCOUNT: [id number] LOCATION:[id number] : [birth year] ADMISSION DATE: 07/22/16 HISTORY AND PHYSICAL EXAMINATION REASON FOR ADMISSION: Left hip pain and fall. HISTORY OF PRESENT ILLNESS: The patient is an 86-year-old female with dementia. She has been noted for falling twice at [facility] in the last 2 weeks. No injury was noted, but she complained of left leg pain for the last week and refused to move her leg. For this reason, her daughter brought her to the office this morning where she was in obvious deformity of the left proximal hip and x-ray confirmed fracture of the femoral neck with superior dislocation. The patient was therefore sent directly by ambulance to the hospital for direct admission. She denies any recent headache. PAST MEDICAL HISTORY: Alzheimer dementia with behavioral disturbances, essential hypertension, chronic urinary tract infections, vitamin D deficiency, osteoarthritis, cardiomegaly, history of paroxysmal atrial fibrillation, hyperlipidemia, GERD, anemia of chronic disease, history of uterine prolapse and hiatal hernia. PAST SURGICAL HISTORY: Pacemaker placement, exploratory surgery of the abdomen remotely and history of knee replacement. FAMILY HISTORY: Father had heart disease. Mother had heart disease and stroke. History of cancer in her family as well. One brother with migraines. SOCIAL HISTORY: Lifelong nonsmoker, nondrinker. She lives at assisted living until recently, now is in [facility] for memory care. She requires a lot of assistance and her daughter is very attentive to her care. ALLERGIES: ASPIRIN, KEFLEX, LIPITOR, PENICILLIN, AMIODARONE, SAMUEL INHIBITORS, SULFA, TALWIN AND ZITHROMAX. HOME MEDICATIONS: Cardizem 60 mg t.i.d., Benicar 20 mg daily, Megace 40 mg b.i.d., sotalol 80 mg b.i.d., Catapres 0.1 q.6 hours for systolic pressure greater than 180, Xanax 0.25 mg b.i.d. p.r.n. anxiety, Dolores 5/325 one q.6 hours p.r.n. pain, Namenda 10 mg p.o. b.i.d., Remeron 15 mg p.o. at bedtime, Aleve 220 mg p.o. q.4 hours p.r.n. severe pain, Zoloft 100 mg p.o. daily, probiotic 1 p.o. b.i.d., vitamin D 5000 units p.o. weekly, multivitamin 1 daily and PreserVision 2 caps p.o. daily. REVIEW OF SYSTEMS: Unobtainable from the patient due to her dementia. Her daughter states she is complaining of pain in her left hip. She has not complained of any exertional chest pain, shortness of breath, or new confusion. The patient's weight was not tested as she could not stand. PHYSICAL EXAMINATION: VITAL SIGNS: Otherwise, show heart rate of 80 and regular, blood pressure 120/84. She is afebrile. GENERAL: The patient seems somewhat sedated. HEENT: Pupils are reactive. Oropharynx is unremarkable. NECK: No bruits or masses. CHEST: Clear. HISTORY AND PHYSICAL [id number] RADHA ALVES HEART: Regular rate. ABDOMEN: Soft, nontender. No organomegaly. PELVIC: Deferred. EXTREMITIES: Her left leg is shortened and externally rotated. She has good distal pulses. She has pain with any flexion of her thigh. NEUROLOGIC: The patient is oriented to person, but not to place and time. She does respond to question inappropriately. There are no obvious other motor deficits appreciated. LABORATORY DATA: Shows a white count of 15.5 thousand, H&H of 10.8 and 34.4, and platelet count 263,000 with left shift. Chemistry shows sodium of 148, potassium of 3.6, BUN and creatinine are 23 and 1.6, and glucose 168, nonfasting. Urinalysis is pending. Chest x-ray shows no acute cardiopulmonary disease. ASSESSMENT: 1. Subacute left femoral neck fracture with displacement. 2. Advanced Alzheimer dementia. 3. Hypertension. 4. Hypernatremia. 5. Intravascular volume depletion. 6. History of gastroesophageal reflux disease, anemia of chronic disease, osteoarthritis, paroxysmal atrial fibrillation and sick sinus syndrome with pacemaker. PLAN: The patient is admitted for orthopedic consultation. We will hydrate and correct her electrolyte abnormalities at this time. I will discuss with daughter her code status due to her poor quality of life. TRANSINT:[id number] Voice Confirmation ID: [id number] DOCUMENT ID: [id number] TY MARQUEZ MD at 0731 CC: [id number] DICTATION DATE: 07/22/16 1326 C PROGRAMMER: 07/22/16 1720 ADM IN [place] [id number] [place] [id number]
[2016-07-23 09:04] LABS: APPEARANCE TURBID (CLEAR); COLOR YELLOW (YELLOW); LEUKOCYTE ESTERASE 2+ (NEGATIVE); NITRITE POSITIVE (NEGATIVE); PROTEIN 2+ mg/dL (NEGATIVE)
[2016-07-23 09:05] LABS: BACTERIA MANY /hpf (NONE SEEN); BILIRUBIN NEGATIVE (NEGATIVE); EPITHELIAL CELLS 0-5 /hpf (0-5); GLUCOSE NEGATIVE (NEGATIVE); KETONE NEGATIVE (NEGATIVE); RED CELLS - URINE 0-5 /hpf (0-5); UROBILINOGEN NORMAL (NORMAL); WHITE CELLS - URINE >50 /hpf (0-5)
--- NOTE | 2016-07-23 13:40 | NUR ---
Patient Name: RADHA ALVES Admission Status: ER Accout number: [id number] Admission Date: 07-22-2016 : 1928 Admission Diagnosis: Attending: AHSLEY Current LOS: 1 Anticipated DC Date: 07-28-2016 Planned Disposition: Long Term Facility Primary Insurance: [facility] Discharge Planning Comments: CM MET WITH PATIENTS DAUGHTER (CLEM) REGARDING D/C NEEDS AND PLANS. PATIENT LIVES AT THE [facility]. PATIENT WAS WALKING WITHOUT WALKER AND FELL PER DAUGHTER. PATIENTS PCP IS DR. MARQUEZ AND PHARM[facility]Y IS [facility]. PATIENTS DAUGHTER WANTS PATIENT TO GO TO [facility] AT DISCHARGE. THE LING WAS SIGNED FOR [facility]. CM WILL CONTINUE TO FOLLOW PATIENT WITH D/C NEEDS AND PLANS. PCP DR. EN[facility]- [phone] CLEM (DAUGHTER) [phone] Video Production Specialist: Krystal Polk Is the patient Alert and Oriented? No 0 * How many steps to enter\exit or inside your home? 0 0 * PCP DR. MARQUEZ 0 * [facility]acy [facility] 0 * Preadmission Environment Assisted Living 0 * Facility Name [facility] 0 * ADLs Partial Dependent 0 * Partial ADLs (Assistance needed) Dressing Eating Medication Management Toileting 0 * Equipment Walker 0 * List name and contact numbers for known caregivers / representatives who currently or will assist patient after discharge: CLEM (DAUGHTER) [phone] * Community resources currently utilized None 0 * Additional services required to return to the preadmission environment? Yes 0 * Can the patient safely return to the preadmission environment? Yes 0 * Has this patient been hospitalized within the prior 30 days at any hospital? No 0 Grand Total: 0
--- NOTE | 2016-07-23 18:19 | NUR ---
PT HAS NO COMPLAINTS AT THIS TIME. BOX ALARM ON FOR SAFETY. ROY OUTPUT 150 CC CONCENTRATED URINE. IV REMAINS IN RIGHT HAND. HAS BEEN TURNED AND POSITIONED FOR COMFORT. CALL LIGHT IN REACH
--- NOTE | 2016-07-23 20:22 | NUR ---
PATIENT RESTING IN BED WITH EYES CLOSED AND DAUGHTER AT BEDSIDE. BED IN LOWEST POSITION, CALL LIGHT WITHIN REACH, AND BOX ALARM ON AND ATTACHED TO PATIENT. ENCOURAGED THE DAUGHTER TO CALL IF THE PATIENT HAS NEEDS.
[2016-07-24] VITALS: BP 110/60
--- NOTE | 2016-07-24 05:37 | NUR ---
PATIENT RESTING IN BED WITH EYES CLOSED AND DAUGHTER AT BEDSIDE. EMPTIED 225 OUT OF ROY. BED IN LOWEST POSITION, CALL LIGHT WITHIN REACH, AND BED ALARM ON. ENCOURAGED THE PATIENT AND HER DAUGHTER TO CALL IF THEY HAVE NEEDS.
[2016-07-24 06:53] LABS: BASOPHILS 0.2 % (0-2); EOSINOPHILS 4.3 % (0-7); IMMATURE GRANULOCYTES 1.1 % (0-5); LYMPHOCYTES 23.4 % (15-50); MCH 30.8 pg (26.0-34.0); MCHC 32.1 g/dL (31.0-37.0); MCV 95.9 fL (80.0-100.0); MEAN PLATELET VOLUME 10.3 fL (7.4-10.4); PLATELET COUNT 142 10x3/uL (130-400); RDW 14.9 % (11.5-14.5)
[2016-07-24 06:54] LABS: HEMATOCRIT 32.7 % (36.0-48.0); HEMOGLOBIN 10.5 g/dL (12-16); RBC 3.41 10x6/uL (4.00-5.40); WBC 8.9 10x3/uL (4.8-10.8)
[2016-07-24 07:05] LABS: CALCIUM 8.7 mg/dL (8.5-10.1); CARBON DIOXIDE 24.6 mmol/L (21.0-32.0); CREATININE - SERUM 1.1 mg/dL (0.6-1.3); POTASSIUM - SERUM 3.6 mmol/L (3.5-5.1)
[2016-07-24 08:21] VITALS: BP 127/56
--- NOTE | 2016-07-24 08:30 | NUR ---
PT ASSESSMENT COMPLETE NO ACUTE DISTRESS NOTED COMPLETED BATH FOR PREOP. DAUGHTER AT BEDSIDE. CALL LIGHT IN REACH SIDE RAILS UP X [address] SMYTH THIS AM
--- NOTE | 2016-07-24 09:45 | NUR ---
PATIENT AND ALERT. NO SIGNS OF DISTRESS NOTED. OFFERED PATIENT ORAL SWABS SINCE SHE IS NPO, PATIENT SMILING AND STATED "WE ARE DOING GREAT.." PATIENT'S DAUGHTER AT BEDSIDE STATED "SHE HAS DEMENTIA. WE WOULD LIKE SOME SWABS THANK YOU." BROUGHT PATIENT SOME SWABS.
--- NOTE | 2016-07-24 11:04 | NUR ---
TO OR AT THIS TIME PER BED FAMILY AT SIDE
--- NOTE | 2016-07-24 12:52 | NUR ---
PT REMAINS IN OR AT THIS TIME.
--- NOTE | 2016-07-24 14:13 | NUR ---
UNABLE TO DETERMINE PLACE OF SPINAL
[2016-07-24 14:28] VITALS: BP 136/74
--- NOTE | 2016-07-24 14:39 | NUR ---
RECIEVED FROM RECOVERY AWAKE BUT UNCOOPERATIVE. REFUSING TO SPEAK AND HOLD TIGHTLY TO LINES AND TUBES DRESSING IN PLACE TO LEFT HIP NO DRAINAGE NOTED PT VITAL SIGNS WITH IN NORMAL LIMITS.
--- NOTE | 2016-07-24 16:51 | NUR ---
PT RESTING WELL ICE PACK NOTED TO LEFT HIP DRESSING IN TACT CALL LIGHT IN REACH ODETTE PAIN
[2016-07-24 20:00] VITALS: BP 128/72
[2016-07-25] VITALS: BP 134/73
--- NOTE | 2016-07-25 00:11 | NUR ---
2030)REC'D.IN BED DRSG. DRY AND INTACT TO LEFT HIP WITH ICE IN PLACE. FOOT PINK AND WARM PEDAL PULSE PRESENT.HEELS BRIDGED DTR. AT BEDSIDE WILL CONTINUE TO MONITOR FOR ANY CHGES. IN NEUROVASCULAR STATUS AND FOLLOW CURRENT PLAN OF CARE.
--- NOTE | 2016-07-25 03:03 | NUR ---
PT IS ASLEEP WITH EASY RESPIRATIONS AND NO DISTRESS NOTED. FAMILY MEMBER IN THE BEDSIDE CHAIR BESIDE THEM. THE BED IS LOW, RAILS UP X'S 2 WITH THE CALL LIGHT AT HAND.
[2016-07-25 04:00] VITALS: BP 97/62
--- NOTE | 2016-07-25 04:31 | NUR ---
ULTRAM 50MG CRUSHED PLACED IN APPLE SAUCE ATTEMPTED TO GIVE SWALLOWED SOME SPIT SOME OUT.COMBATIVE. TURNED TO RT. SIDE PILLOW TO BACK AND BETWEEN LEGS FOR COMFORT. DTR REMAINS AT BEDSIDE.
[2016-07-25 07:08] LABS: BASOPHILS 0.1 % (0-2); HEMATOCRIT 32.2 % (36.0-48.0); HEMOGLOBIN 10.6 g/dL (12-16); IMMATURE GRANULOCYTES 0.7 % (0-5); LYMPHOCYTES 10.4 % (15-50); MCHC 32.9 g/dL (31.0-37.0); MCV 94.2 fL (80.0-100.0); MEAN PLATELET VOLUME 11.6 fL (7.4-10.4); MONOCYTES 8.8 % (2-11); PLATELET COUNT 148 10x3/uL (130-400); RBC 3.42 10x6/uL (4.00-5.40); RDW 14.1 % (11.5-14.5)
[2016-07-25 07:11] LABS: WBC 14.1 10x3/uL (4.8-10.8)
[2016-07-25 07:26] LABS: ANION GAP 11.9 mmol/L (8-16); CALCIUM 8.6 mg/dL (8.5-10.1); CARBON DIOXIDE 23.6 mmol/L (21.0-32.0); POTASSIUM - SERUM 3.5 mmol/L (3.5-5.1)
--- NOTE | 2016-07-25 08:21 | NUR ---
PT ASSESSMENT COMPLETE AWAKE AND ALERT ORINETED X 3 LUNGS CLEAR BIALTERALLY SURGICAL DRESSING INTACT TO LEFT HIP ICE PACK IN PLACE DENEIS PAIN AT THSI TIME HOWEVER PT IS DEMENTED AND UNABLE TO ANSWER APPROPRIATELY WILL TREAT PAIN ACCORDING TO ASSESSMENT
[2016-07-25 10:09] VITALS: BP 98/49
--- NOTE | 2016-07-25 11:07 | NUR ---
pt seen and assessed. disoriented to person, place, and time. wen alarm on for safety. ice pack to left hip replaced with fresh ice-dressing clean dry and intact. good pedal pulse left foot. head draining yellow urine. call light in reach
[2016-07-25 11:47] VITALS: BP 101/48
--- NOTE | 2016-07-25 12:46 | NUR ---
NUTRITION MONITORING & EVAL DIET CHANGED TO FULL LIQUID PER FAMILY/PT REQUEST. WILL STOCK EXTRA SHASHANK MIGHTY SHAKES IN FREEZER FOR PRN USE. RD FOLLOWING
--- NOTE | 2016-07-25 13:52 | NUR ---
PT HAS REFUSED TO EAT AFTER MULTIPLE ATTEMPTS. APPEARS TO BE IN PAIN ATTEMPTED TO GIVE TRAMADOL EARLIER UNSURE HOW MUCH PT ACTUALLY GOT SHE REFUSED TO SWALLOW. WILL SPEAK WITH MD ADAMSING IV PAIN MEDS
--- NOTE | 2016-07-25 14:55 | NUR ---
REPORT RECEIVED FROM NIRAV BERNSTEIN.
--- NOTE | 2016-07-25 16:01 | NUR ---
CARDIZEM ADMINISTERED WITH CHOCOLATE PUDDING.
[2016-07-25 16:38] VITALS: BP 100/38
--- NOTE | 2016-07-25 18:15 | NUR ---
NO CHANGES IN INITIAL ASSESSMENT. CALL LIGHT IN REACH. SCDs TO BLE. ALARM ON. WILL CONTINUE WITH PLAN OF CARE.
[2016-07-25 19:00] VITALS: BP 140/62
[2016-07-26] VITALS: BP 127/64
--- NOTE | 2016-07-26 01:05 | NUR ---
PT IS ALEEP WITH EASY RESPIRTIONA AND NO SIGNS OF DISTRESS NOTED. NO O2 NOTED AND LIGHTS ARE DIM. THE BED IS LOW, RAILS UP X'S 2 WITH THE CALL LIGHT AT HAND.
[2016-07-26 04:00] VITALS: BP 117/60
[2016-07-26 07:03] LABS: BASOPHILS 0 % (0-2); EOSINOPHILS 1.5 % (0-7); HEMATOCRIT 26.8 % (36.0-48.0); HEMOGLOBIN 8.9 g/dL (12-16); IMMATURE GRANULOCYTES 0.8 % (0-5); LYMPHOCYTES 11.1 % (15-50); MCH 31.3 pg (26.0-34.0); MCHC 33.2 g/dL (31.0-37.0); MCV 94.4 fL (80.0-100.0); MEAN PLATELET VOLUME 10.9 fL (7.4-10.4); MONOCYTES 11.4 % (2-11); NEUTROPHILS 75.2 % (40-80); RBC 2.84 10x6/uL (4.00-5.40); RDW 14.4 % (11.5-14.5); WBC 12.2 10x3/uL (4.8-10.8)
[2016-07-26 07:07] LABS: PLATELET COUNT 110 10x3/uL (130-400)
[2016-07-26 07:25] LABS: ANION GAP 9.2 mmol/L (8-16); CALCIUM 8.5 mg/dL (8.5-10.1); CARBON DIOXIDE 25.1 mmol/L (21.0-32.0); CREATININE - SERUM 1.2 mg/dL (0.6-1.3); POTASSIUM - SERUM 3.3 mmol/L (3.5-5.1)
--- NOTE | 2016-07-26 08:30 | NUR ---
PATIENT ALERT IN BED WITH DAUGHTER PRESENT. NO SIGNS OF DISTRESS NOTED. SIDE RAILS UP X2. BED IN LOW POSITION. CALL LIGHT IN REACH.
[2016-07-26 09:00] VITALS: BP 104/40
[2016-07-26 16:17] VITALS: BP 100/60
[2016-07-26 20:00] VITALS: BP 112/37
--- NOTE | 2016-07-26 20:54 | NUR ---
PATIENT RESTING IN BED. ALERT. DISORIENTED. UNABLE TO ANSWER QUESTIONS APPROPRIATELY. SCHEDULED MEDS GIVEN WITH ASSISTANCE FROM DAUGHTER. SHIFT ASSESSMENT COMPLETED. DAUGHTER DENIES ANY OTHER NEEDS AT THIS TIME. BED LOW. CALL LIGHT IN REACH
--- NOTE | 2016-07-26 21:38 | NUR ---
PATIENT RESTING IN BED WITH GUEST AT BEDSIDE AND DENIES NEEDS AT THIS TIME. BED IN LOWEST POSITION, CALL LIGHT WITHIN REACH, AND BOX ALARM ON AND ATTACHED TO THE PATIENT. ENCOURAGED THE PATIENT AND HER DAUGHTER TO CALL IF THEY HAVE NEEDS.
[2016-07-27 04:00] VITALS: BP 92/39
[2016-07-27 06:31] LABS: BASOPHILS 0.1 % (0-2); EOSINOPHILS 1.7 % (0-7); HEMATOCRIT 24.5 % (36.0-48.0); HEMOGLOBIN 8.1 g/dL (12-16); IMMATURE GRANULOCYTES 0.7 % (0-5); LYMPHOCYTES 12.5 % (15-50); MCH 31.2 pg (26.0-34.0); MCHC 33.1 g/dL (31.0-37.0); MCV 94.2 fL (80.0-100.0); MEAN PLATELET VOLUME 11.2 fL (7.4-10.4); MONOCYTES 9.6 % (2-11); NEUTROPHILS 75.4 % (40-80); PLATELET COUNT 130 10x3/uL (130-400); RDW 14.4 % (11.5-14.5); WBC 11.3 10x3/uL (4.8-10.8)
[2016-07-27 06:54] LABS: ANION GAP 12.6 mmol/L (8-16); CALCIUM 8.2 mg/dL (8.5-10.1); CARBON DIOXIDE 23.6 mmol/L (21.0-32.0); CREATININE - SERUM 0.9 mg/dL (0.6-1.3); POTASSIUM - SERUM 3.2 mmol/L (3.5-5.1)
--- NOTE | 2016-07-27 07:00 | NUR ---
PT REC'D FROM NIRAV LIN. RESTING IN BED WITH DAUGHTER AT BEDSIDE. CONFUSED TO PLACE, TIME, AND SITUATION. UNABLE TO REORIENT. DRESSING TO L HIP CDI. NO SIGNS OF PAIN. IV TO R FOREARM RED AND SWOLLEN. DC'D WTIH CATHETER INTACT. BED LOW, CALL LIGHT IN REACH, DENIES NEEDS. CPOC.
--- NOTE | 2016-07-27 08:40 | NUR ---
PATIENT ALERT IN MID [place] POSITION. RESPIRATIONS EVEN AND UNLABORED. SIDE RAILS UP X2. BED IN LOW POSITION. CALL LIGHT IN REACH.
[2016-07-27 11:53] VITALS: BP 133/45
--- NOTE | 2016-07-27 15:30 | NUR ---
PRN ATIVAN AND NORCO ADMINISTERED AFTER PROVIDING BED BATH AND LINEN CHANGE FOR PT DUE TO INCONTINENCE OF BOWEL. LARGE SOFT BROWN BM. REPOSITIONED TO BACK. BED LOW, CALL LIGHT IN REACH, DENIES NEEDS. CPOC.
[2016-07-27 15:33] VITALS: BP 121/50
--- NOTE | 2016-07-27 17:54 | NUR ---
IV RESITED TO R FOREARM USING 20 GUAGE CATHETER. X1 ATTEMPT. PT TOLERATED WELL. MAINTINANCE AND IN KCL ADMINISTERED THROUGH THIS LINE. 20 GUAGE IV SITED TO L FOREARM WELL. X1 ATTEMPT. 1ST AND ONLY UNIT OF BLOOD INFUSING THROUGH THIS LINE. WILL MONITOR FOR 1ST 15 MINUTES. VSS. PRN BENADRYL ADMINISTERED DUE TO PT SCRATCHING AT HEAD AND ARM. BED LOW, CALL LIGHT IN REACH, DENIES NEEDS. CPOC.
[2016-07-27 20:00] VITALS: BP 113/57
[2016-07-28] VITALS: BP 108/49
--- NOTE | 2016-07-28 01:25 | NUR ---
RESTING WITH EYES CLOSED, RESP WITH EASE, NO DISTRESS NOTED, SAFETY MEASURES IN PLACE, CL IN REACH
[2016-07-28 04:00] VITALS: BP 110/50
[2016-07-28 05:41] LABS: BASOPHILS 0.2 % (0-2); EOSINOPHILS 4.1 % (0-7); IMMATURE GRANULOCYTES 0.8 % (0-5); LYMPHOCYTES 15.2 % (15-50); MCH 30.7 pg (26.0-34.0); MCV 92.9 fL (80.0-100.0); MONOCYTES 9.8 % (2-11); NEUTROPHILS 69.9 % (40-80); PLATELET COUNT 153 10x3/uL (130-400); RDW 15.2 % (11.5-14.5); WBC 10.9 10x3/uL (4.8-10.8)
[2016-07-28 05:54] LABS: HEMATOCRIT 32.7 % (36.0-48.0); HEMOGLOBIN 10.8 g/dL (12-16); RBC 3.52 10x6/uL (4.00-5.40)
[2016-07-28 05:55] LABS: ANION GAP 7.8 mmol/L (8-16); CALCIUM 8.8 mg/dL (8.5-10.1); CARBON DIOXIDE 28.5 mmol/L (21.0-32.0); CREATININE - SERUM 0.9 mg/dL (0.6-1.3); POTASSIUM - SERUM 3.3 mmol/L (3.5-5.1)
[2016-07-28 08:22] VITALS: BP 101/40
--- NOTE | 2016-07-28 08:24 | NUR ---
PT AOX1 FAMILY AT THE BEDSIDE IV TO RIGHT FOREARM PATENT AND INTACT RESP EVEN AND NONLABORED SRX2 BED AT LOWEST SETTING CALL LIGHT WITHIN REACH WILL CONTINUE TO MONITOR
[2016-07-28 11:50] VITALS: BP 125/47
--- NOTE | 2016-07-28 13:56 | OP ---
PATIENT NAME: RADHA ALVES MEDICAL RECORD: [id number] :[birth year] LOCATION:[id number] ADMISSION DATE:07/22/16 SURGEON: MEREDITH SMYTH MD DATE OF OPERATION: 07/24/2016 PREOPERATIVE DIAGNOSIS: Displaced left femoral neck fracture. POSTOPERATIVE DIAGNOSIS: Displaced left femoral neck fracture. PROCEDURE: Bipolar endoprosthesis for displaced left femoral neck fracture. SURGEON: Meredith Smyth M.D. ANESTHESIA: General. INTRAOPERATIVE COMPLICATIONS: None. SUMMARY OF PATHOLOGIC FINDINGS: The patient had a femoral neck fracture displaced. She evidently had this fracture for quite some time, essentially greater than 4-5 days given the amount contraction that she had. OPERATIVE SUMMARY IN DETAIL: After obtaining the appropriate preoperative orthopedic surgery consent as well as anesthetic consultation, evaluation and clearance, the patient was brought to the operating room and placed on the operating table in supine position. After adequate spinal anesthesia was administered, the patient was placed in a right lateral decubitus position. All pressure points were well padded to include down leg peroneal pad as well as axillary roll. The patient was held firmly to the operating table. Using the vacuum pack suction system, left lower extremity and hip were prepped and draped in routine sterile fashion. Curvilinear incision was made over the greater trochanter, taken down the level of the IT band, which was split in line with the fibers of the IT band to reveal gluteus medius and minimus attachment to the greater trochanter. These were reflected anteriorly. The hip capsule was cut in a T-type method for later reapproximation. Femoral neck cut was made using the femoral neck cutting guide for the Accolade II system. The femoral head was then extracted from the acetabular cup. This was then lavaged followed by serial and sequential reaming and broaching for a size 3 Accolade II stem. This was tamped into place. Trials were undertaken and it was felt like standard was the most appropriate to reapproximate the patient's leg length. Standard was put into place. Intraoperative radiograph showed good reapproximation leg lengths as well as good fit and fill of the components. Having completed this, the capsule of the hip was closed with #2 Ethibond followed by reapproximation of the gluteus medius and minimus in a transosseous fashion using #2 Ethibond. This was followed by #2 Ethibond for IT band closure, #1 Vicryls and skin staple were used for final closure. Sterile dressings were applied. The patient was awakened, taken to recovery in stable condition. All final needle and sponge counts were correct. TRANSINT:[id number] Voice Confirmation ID: [id number] DOCUMENT ID: [id number] OPERATIVE REPORT [id number] RADHA ALVES MD, MEREDITH STONE at 1356 CC: [id number] DICTATION DATE: 07/24/16 1354 MUSIC EDUCATOR: 07/24/16 2329 ADM IN [facility] [address] [place] [id number]
[2016-07-28 15:46] VITALS: BP 149/52
[2016-07-28 20:00] VITALS: BP 132/58
--- NOTE | 2016-07-28 22:16 | NUR ---
ALERT AND DISORIENTED. NO SIGNS OF DISTRESS NOTED. SCHEDULED MEDS GIVEN. SHIFT ASSESSMENT COMPLETED. BED LOW. CALL LIGHT IN REACH
--- NOTE | 2016-07-29 01:55 | NUR ---
PATIENT RESTING IN BED WITH EYES CLOSED. NO VISBLE SIGNS OF DISTRESS. BED IN LOWEST POSITION AND CALL LIGHT WITHIN REACH.
[2016-07-29 04:00] VITALS: BP 160/53
[2016-07-29 06:35] LABS: CALC OSMOLALITY 277 mosm/kg (275-300); CALCIUM 8.9 mg/dL (8.5-10.1); CARBON DIOXIDE 27.1 mmol/L (21.0-32.0); CHLORIDE - SERUM 106 mmol/L (98-107); CREATININE - SERUM 0.7 mg/dL (0.6-1.3); GLUCOSE 90 mg/dL (74-106); POTASSIUM - SERUM 3.7 mmol/L (3.5-5.1); SODIUM 140 mmol/L (136-145); eGFR NON AFRICAN AMERICAN 83 mL/min (90-120)
[2016-07-29 06:41] LABS: UREA NITROGEN 10 mg/dL (7-18)
[2016-07-29 08:17] VITALS: BP 143/69
--- NOTE | 2016-07-29 09:26 | NUR ---
PT AOX1 RESP EVEN AND NONLABORED IV TO RIGHT FOREARM PATENT AND INTACT. FAMILY AT BEDSIDE. BED AT LOWEST SETTING CALL LIGHT WITHIN FAMILY REACH. LEFT ARM SL PATENT. WILL CONTINUE TO MONITOR
[2016-07-29 12:08] VITALS: BP 148/84
--- NOTE | 2016-07-29 13:06 | NUR ---
CM REASSESSMENT NOTE: PATIENT IS DISCHARGING TO [facility] TO A HOSPICE HOME. FAMILY HAS CHOSEN [facility] AND THEY ARE ACCEPTING PATIENT. PATIENT WILL DISCHARGE BY AMBULANCE TODAY
--- NOTE | 2016-07-29 14:48 | NUR ---
IV TO LEFT AND RIGHT FOREARM DISCONTINUED WITH CATHETER INTACT AT THIS TIME PT DISCHARGED VIA AMBULANCE AT THIS TIME
[2016-07-30 17:12] LABS: AEROBE ID Final report (()); RESULT 1 Aerococcus viridans (())
== END 2016-07-29 14:50 | disposition home health service (06) | DRG 470 ==
LOC: D.ER 09:43 → D.MS 10:10 → D.WS 10:10 → D.MS 17:19
PROVIDERS: Emergency Medicine; Orthopaedic Surgery; ADMIT Family Medicine
PROC: 0SRS0JZ Replacement of Left Hip Joint, Femoral Surface with Synthetic Substitute, Open Approach (ICD-10-PCS; principal; 2016-07-24 13:30)
DX: S72.002A Fracture of unspecified part of neck of left femur, initial encounter for closed fracture (principal); E87.0 Hyperosmolality and hypernatremia; N39.0 Urinary tract infection, site not specified; F02.81 Dementia in other diseases classified elsewhere, unspecified severity, with behavioral disturbance; W19.XXXA Unspecified fall, initial encounter; E86.0 Dehydration; D63.8 Anemia in other chronic diseases classified elsewhere; I48.0 Paroxysmal atrial fibrillation; Z66 Do not resuscitate; G30.9 Alzheimer's disease, unspecified; I10 Essential (primary) hypertension; E78.5 Hyperlipidemia, unspecified; K21.9 Gastro-esophageal reflux disease without esophagitis